=== PATIENT | male | born 1940 | race Caucasian/White ===

== ENCOUNTER 2018-04-16 19:00 | Emergency (ER) | payer MEDICARE, OTHER ==
[~2018-04-16] VITALS: Ht 172.7 cm; Wt 70.3 kg
[~2018-04-16 19:00] MED LIST: ALEVE220 M1 PO; ASPIR 8181 MG PO; ATENOLOL50 MG PO; FLOMAX0.4 MG PO; FLUOXETINE HCL20 M1 PO; FLUOXETINE HCL20 MG PO; GLUCOSAMINE1000 MG PO; HYDROCHLOROTHIA25 MG PO; LISINOPRIL10 MG PO; MULTI-VITAMIN1 EACH PO; PLAVIX75 MG PO; PROAIR HFA INH8.5 GM INH; SIMVASTATIN80 MG PO; SYMBICORT 16010.2 GM INH
--- OUTSIDE RECORDS SUMMARY | 2018-04-16 19:03 | XMS REPORT | Summary of Care ---
Author Author [facility] [place] Organization [facility] [place] Address Unknown Phone Unavailable Encounter [facility]) [id number] Date(s): 07/19/15 - 07/19/15 [facility] [place] [address] [place] [address] [phone] Discharge Disposition: Home Attending Physician: Gerald Bailey MD Vital Signs No data available for this section Problem List No data available for this section Allergies, Adverse Reactions, Alerts No data available for this section Medications No data available for this section Results No data available for this section Immunizations No data available for this section Procedures No data available for this section Social History No data available for this section Assessment and Plan No data available for this section
--- OUTSIDE RECORDS SUMMARY | 2018-04-16 19:03 | XMS REPORT | Continuity of Care Document ---
Author Author Charlotte walker [facility] Interface Address Unknown Phone Unavailable Problems Problem Status Onset Date Classification Date Reported Comments Source R06.02 Active 01/05/2016 [facility] S46.092A - INJ MUSC/TEND THE ROTATOR CUF Active 07/14/2015 [facility] [place] SHORTNESS OF BREATH Active [facility] Medications Medication Details Route Status Patient Instructions Ordering Provider Order Date Source Allergies, Adverse Reactions, Alerts Substance Category Reaction Severity Reaction type Status Date Reported Comments Source Immunizations Immunization Date Given Site Status Last Updated Comments Source Results Order Name Results Value Reference Range Date Interpretation Comments Source Shoulder wo contrast MRI Shoulder wo contrast MRI EXAMINATION: MR left shoulder without contrast HISTORY: S46.092A Other injury of muscle(s) and tendon(s) of the rotator cuff of left shoulder, initial encounter; chronic left shoulder pain and limited range of motion; left glenohumeral arthritis FINDINGS: Orbital screening radiographs prior to the examination demonstrate no evidence of radiopaque foreign body. Dental restorations are partially visualized. There are no shoulder radiographs available for review. Multiplanar, multisequence magnetic resonance imaging of the left shoulder is performed with a local coil. Transverse, oblique coronal, and oblique sagittal images are obtained. Biceps: The long head of biceps remains attached at the superior bicipital labral complex without dislocation or subluxation. Labrum: There is circumferential degenerative tearing of the labrum. Rotator cuff tendons: There is moderate supraspinatus and infraspinatus tendinopathy with increased intratendinous signal and tendon hypertrophy. There is a small, low grade, partial-thickness interstitial tear at the footprint of the anterior supraspinatus tendon measuring 4 mm in anteroposterior dimension and involving a maximum of approximately one third of the tendon thickness at the footprint. There is no high-grade partial-thickness or full-thickness tear. The teres minor and subscapularis tendons are intact. Acromio-osseous outlet: There is a type I acromion without a subacromial spur. The coracoacromial and coracoclavicular ligaments are intact. Muscles: There is mild diffuse fatty infiltration of the rotator cuff musculature without decreased muscle bulk. Cartilage: There is mild degenerative arthrosis of the acromioclavicular joint. There is severe glenohumeral osteoarthritis with full-thickness cartilage denudation of the humeral head and matching glenoid. There are several foci of subchondral cyst formation with osteophytosis of the glenohumeral joint. Bone: There are 17 degrees of acquired glenoid retroversion (series 2C, image 8). There is decreased glenoid bone stock centrally measuring 1.4 cm (series 2C, image 9). There are no fractures. Soft tissue: There is no fluid in the subacromial-subdeltoid bursa. There is a large glenohumeral joint effusion with scattered synovitis and synovitic debris. There is a large osteochondral loose body within the subcoracoid recess measuring approximately 3.5 x 2 x 2.2 cm in mediolateral, anteroposterior, and craniocaudal dimensions respectively. IMPRESSION: 1. Severe left glenohumeral osteoarthritis with full-thickness cartilage denudation of the humeral head and matching glenoid, as well as, foci of subchondral cyst formation and osteophytosis at the glenohumeral joint. There is acquired glenoid retroversion of 17 degrees with decrease glenoid bone stalk centrally. 2. Moderate left supraspinatus and infraspinatus tendinopathy with a small, low grade, partial-thickness interstitial tear at the footprint of the anterior left supraspinatus tendon measuring 4 mm in anteroposterior dimension and involving a maximum of approximately one third of the tendon thickness at the footprint. There is no high-grade partial-thickness tear or full-thickness tear. 3. Mild diffuse fatty infiltration of the left rotator cuff musculature without decrease muscle bulk. 4. Mild left acromioclavicular degenerative arthrosis. 5. Large left glenohumeral joint effusion with scattered synovitis and synovitic debris. A large osteochondral loose body is noted within the subcoracoid recess. 07/19/2015 - - Read by: Chan Nino MD Dictated Date/time: 07/19/15 13:11 Electronically Signed by: Chan Nino MD 07/19/15 13:32 FINAL REPORT [facility] Vital Signs Vital Sign Value Date Comments Source Encounters Location Location Details Encounter Type Encounter Number Reason For Visit Attending Provider ADM Date DC Date Status Source [facility] [place] Out[facility] Services [id number] Gearld Bailey 07/19/2015 07/20/2015 [facility] Outpatient [id number] Primo Hunter 01/11/2016 01/12/2016 [facility] [place] Out[facility] Di[facility] Services [id number] Shayne Huff 06/11/2016 06/12/2016 [facility] [place] Procedures Procedure Code Date Perfomer Comments Source
--- OUTSIDE RECORDS SUMMARY | 2018-04-16 19:03 | XMS REPORT | Clinical Summary ---
Author Author [facility] Address Unknown Phone Unavailable Care Team Providers Care Test Data Developer Name Role Phone Primo Hunter MD PCP Allergies Comments Active Allergy Reactions Severity Noted Date Hydrocodone-Acetaminophen Rash High 01/11/2016 Medications End Date Status Medication Sig Dispensed Refills Start Date Active FLUoxetine (PROzac) 20 MG Take 20 mg by 0 capsule mouth daily. Active testosterone cypionate Inject into 0 (DEPOTESTOTERONE the shoulder, CYPIONATE) 200 mg/mL thigh, or injection buttocks every 30 (thirty) days. Active tamsulosin (FLOMAX) 0.4 Take 0.4 mg 0 mg capsule,extended by mouth release 24hr daily. Active amLODIPine (NORVASC) 10 Take 10 mg by 0 mg tablet mouth daily. Active aspirin (ECOTRIN) 81 MG Take 81 mg by 0 enteric coated tablet mouth daily. Active fluticasone-vilanterol Inhale 1 0 (BREO ELLIPTA) 200-25 inhalations mcg/dose blister with once daily. device powder for inhalation Active clopidogrel (PLAVIX) 75 Take 75 mg by 0 mg tablet mouth daily. Active albuterol (PROAIR Inhale 2 0 HFA,PROVENTIL puffs every 6 HFA,VENTOLIN HFA) 90 (six) hours mcg/actuation inhaler as needed for wheezing. Active simvastatin (ZOCOR) 40 MG Take 40 mg by 0 tablet mouth nightly. Active Problems Problem Noted Date s/p Stent placement of L common carotid, L subclavian, L vertebral arteries 01/10/2017 Accelerated hypertension 01/10/2017 Postoperative anemia due to acute blood loss 01/10/2017 Coagulopathy 01/10/2017 PAD (peripheral artery disease) 01/09/2017 Immunizations Name Dates Previously Given Next Due FLUCELVAX QUAD PF (0.5mL 01/15/2017 syringe) INFLUENZA QUAD PF 02/19/2016 Family History Medical History Relation Name Comments Diabetes Mother Heart disease Mother Relation Name Status Comments Mother Social History Date Tobacco Use Types Packs/Day Years Used Former Smoker Tobacco Cessation: Counseling Given: No Alcohol Use Drinks/Week oz/Week Comments No Sex Assigned at Date Recorded Not on file Industry Job Start Date Occupation Not on file Not on file Not on file Travel End Travel History Travel Start No recent travel history available. Last Filed Vital Signs Not on file Plan of Treatment Health Maintenance Due Date Last Done Comments COLON CANCER SCREENING 1992 SHINGLES VACCINES (1 of 1992 2) PNEUMOCOCCAL 2007 POLYSACCHARIDE VACCINE AGE 65 AND OVER PNEUMOCOCCAL-13 2007 INFLUENZA VACCINE 11/12/2017 01/15/2017, 02/19/2016 Implants Device Identifier Shelf Expiration Date Model / Serial / Lot Implanted Type Area Manufactur er 11/22/2016 [id number] / / [id number] Kit Romeo 3 26mm Commander Tavr Cardiovasc N/A: N/A ROBERT (Tf) - [id number] [facility] Implanted: Qty: 1 on 02/15/2016 by Implants Roderick Robertson MD 08/11/2018 [id number] / / [id number] Device Vasclr Clsr Baln Cath 10ml Cardiovasc N/A: N/A CARDINAL Lkng Syr 6fr 7fr Mynxgrip - [facility] [id number] Implants Implanted: 11/15/2016 (Quantity not on file) 08/06/2018 [id number] / / [id number] Catheter Bln Otw 2.5mm 12mm Cardiovasc N/A: N/A MEDTRON[employer] Sprinter - [id number] [facility] [place] - Implanted: 01/10/2017 (Quantity not Implants VASCULAR on file) 06/24/2018 [id number] / / [id number] Stent System 4.0 X 12mm Resolute Coronary N/A: N/A [employer]TRON[employer] Yoder Otw Coronary - [id number] Stents [place] - Implanted: 01/10/2017 (Quantity not CARDIAC on file) RYHTYM MGMT 11/13/2018 [id number] / / [id number] Stent Bili Iliac Exp Ld Reprcsd Peripheral N/A: N/A BSC Prmntd 8x17mm Metal - [id number] or Biliary PERIPHERAL Implanted: 01/10/2017 (Quantity not Stents INTERVENTI on file) ON VASCULAR FERNANDEZ 07/17/2019 [id number] / / [id number] Stent Bili Express Ld Prmntd 135cm Peripheral N/A: N/A [facility] [place] 7x57mm - [id number] or Biliary PERIPHERAL Implanted: 01/10/2017 (Quantity not Stents INTERVENTI on file) ON VASCULAR FERNANDEZ 07/25/2018 [id number] / / [id number] Stent Bili Exp Ld Prmntd 7x17mm W/ Peripheral N/A: N/A [facility] [place] Cath 135cm - [id number] or Biliary PERIPHERAL Implanted: 01/10/2017 (Quantity not Stents INTERVENTI on file) ON VASCULAR FERNANDEZ 06/12/2019 [id number] / / [id number] Stent Crtd Xact Slf-Xpndbl Str Asaf Peripheral N/A: N/A CISSE 8x30mm - [id number] or Biliary VASCULAR Implanted: 01/10/2017 (Quantity not Stents DEVICES on file) 04/01/2017 [id number] / [id number] / [id number] 7mm Nominal X 11mm Post-Dilated Stent, N/A: N/A GORE Stent, 15mm Crimped Stent, 135cm Balloon MEDICAL Catheter, Viabahn Vbx Expanding Balloon-Expandable Endoprosthesis Implanted: Qty: 1 on 11/15/2016 by Suleiman Arnold MD 08/13/2017 [id number] / [id number] / [id number] 7mm Nominal X 11mm Post-Dilated Stent, N/A: N/A GORE Stent, 19mm Crimped Stent, 135cm Balloon MEDICAL Catheter, Viabahn Vbx Expanding Balloon-Expandable Endoprosthesis Implanted: Qty: 1 on 11/15/2016 by Suleiman Arnold MD 08/06/2019 [id number] / / [id number] Cath Spinning Machine Operator 6fr Ball 80cm X 2.0 10mm Surgical N/A: N/A COOK Advance 35lp - [id number] Implants; PERIPHERAL Implanted: 11/15/2016 (Quantity not Expanders; INTERVENTI on file) Extenders; ON Surgical Wires [id number] / / Catheter Balloon Advance 35 Lp Low Surgical N/A: N/A COOK Profile 135-6-2.0 - [id number] Implants; PERIPHERAL Implanted: 01/10/2017 (Quantity not Expanders; INTERVENTI on file) Extenders; ON Surgical Wires [id number] / / Catheter Balloon Advance 35 Lp Low Surgical N/A: N/A COOK Profile 135-6-4.0 - [id number] Implants; PERIPHERAL Implanted: 01/10/2017 (Quantity not Expanders; INTERVENTI on file) Extenders; ON Surgical Wires 10/25/2019 [id number] / / [id number] [place] Select 5f [address] [place] - Surgical N/A: N/A PENUMBRA [id number] Implants; INC Implanted: 01/10/2017 (Quantity not Expanders; on file) Extenders; Surgical Wires Results Not on fileafter 04/15/2017 Insurance Payer Benefit Subscriber ID Type Phone Address Plan / Group [employer] CIGNA xxxxxxxxxxx [facility] Advance Directives Patient has advance care planning documents on file. For more information, elma robison contact: Dusty Dempsey [address] [place] [address]
--- OUTSIDE RECORDS SUMMARY | 2018-04-16 19:03 | XMS REPORT | Summary of Care ---
Author Author [facility] [place] Organization [facility] [place] Address Unknown Phone Unavailable Encounter [facility]([place]) [id number] Date(s): 06/11/16 - 06/11/16 [facility] [place] [address] [place] [phone] Discharge Disposition: Home or Self Care Attending Physician: Shayne Huff MD Vital Signs No data available for [...]
--- OUTSIDE RECORDS SUMMARY | 2018-04-16 19:03 | XMS REPORT | Summary of Care ---
Author Author [facility] Organization [facility] Address Unknown Phone Unavailable Encounter [facility]tr_[facility]([place]) [id number] Date(s): 01/11/16 - 01/11/16 [facility] [address] [place] [id number] [phone] Discharge Disposition: Home or Self Care Attending Physician: Primo Hunter MD Referring Physician: Primo Hunter MD Vital Signs No data available for [...]
--- OUTSIDE RECORDS SUMMARY | 2018-04-16 19:03 | XMS REPORT | Summary of Care ---
Author Author [facility] [place] Organization [facility] [place] Address Unknown Phone Unavailable Encounter [facility]([place]) [id number] Date(s): 06/11/16 - 06/11/16 [facility] [place] [address] [place] [phone] Discharge Disposition: Home or Self Care Attending [...]
[2018-04-16 19:24] LABS: BASOPHILS # (AUTO) 0.1 (0.0-0.1); BASOPHILS % 0.5 % (0.0-1.0); EOSINOPHILS # (AUTO) 0.5 (0.0-0.4); EOSINOPHILS % 3.7 % (0.0-6.0); HEMATOCRIT 41.4 % (38.2-49.6); HEMOGLOBIN 13.1 g/dL (14.0-18.0); LYMPHOCYTES # (AUTO) 1.7 (1.0-3.2); LYMPHOCYTES % 13.8 % (18.0-39.1); MEAN CORPUSCULAR HEMOGLOBIN 28.7 pg (28-32); MEAN CORPUSCULAR HGB CONC 31.6 g/dL (31-35); MEAN CORPUSCULAR VOLUME 90.8 fL (81-99); MONOCYTES % 8.1 % (4.4-11.3); NEUTROPHILS # (AUTO) 8.9 (2.1-6.9); NEUTROPHILS % 73.4 % (38.7-80.0); PLATELET COUNT 252 x10e3/uL (140-360); RED BLOOD COUNT 4.56 x10e6/uL (4.3-5.7); RED CELL DISTRIBUTION WIDTH 16.2 % (11.7-14.4)
[2018-04-16] MEDS ORDERED: DIATRIZOATE MEGL/DIATRIZOA SOD 30 ML BTL PO ONE (19:40)
[2018-04-16 19:42] LABS: ALBUMIN 3.6 g/dL (3.5-5.0); ALBUMIN/GLOBULIN RATIO 1.2 (0.8-2.0); ANION GAP 14.4 mmol/L (8-16); CALCIUM 8.6 mg/dL (8.4-10.2); CREATININE, SERUM 2.26 mg/dL (0.72-1.25); POTASSIUM 3.4 mmol/L (3.5-5.1)
[2018-04-16 19:57] LABS: BILIRUBIN,URINE NEGATIVE (NEGATIVE); CLARITY,URINE CLEAR (CLEAR); COLOR,URINE YELLOW (YELLOW); KETONES,URINE NEGATIVE (NEGATIVE); LEUKOCYTE ESTERASE ,URINE NEGATIVE (NEGATIVE); NITRITE,URINE NEGATIVE (NEGATIVE); PROTEIN,URINE DIPSTICK NEGATIVE (NEGATIVE); URINE UROBILINOGEN 1 mg/dL (0.2 - 1)
[2018-04-16 20:06] LABS: EPITHELIAL CELLS,URINE RARE /LPF
--- NOTE | 2018-04-16 20:23 | Diagnostic Imaging Report ---
EXAMINATION: CHEST SINGLE (PORTABLE) INDICATION: ^COUGH X1 WEEK ^[id number] ^1946 COMPARISON: 11/12/2016 FINDINGS: AP view TUBES and LINES: None. LUNGS: Lungs are well inflated. Central peribronchovascular thickening/cuffing. Mild bilateral lower lung field hazy opacities. PLEURA: No pleural effusion or pneumothorax. HEART AND MEDIASTINUM: The cardiomediastinal silhouette is unremarkable. Aorta is mildly calcified and tortuous. BONES AND SOFT TISSUES: No acute osseous lesion. Degenerative changes of glenohumeral joints, left greater than right. Soft tissues are unremarkable. UPPER ABDOMEN: No free air under the diaphragm. IMPRESSION: Central peribronchovascular thickening/cuffing. Mild bilateral lower lung field hazy opacities, representing atelectasis and/or developing pneumonia. Signed by: Dr. Uziel Barker MD on 04/16/2018 8:20 PM
--- NOTE | 2018-04-16 21:23 | Diagnostic Imaging Report ---
EXAM: CT Abdomen and Pelvis WITHOUT contrast INDICATION: Lower abdominal pain/groin pain. COMPARISON: CT abdomen and pelvis 11/12/2016 TECHNIQUE: Abdomen and pelvis were scanned utilizing a multidetector helical scanner from the lung base to the pubic symphysis without administration of IV contrast. Absence of intravenous contrast decreases sensitivity for detection of focal lesions and vascular pathology. Coronal and sagittal reformations were obtained. Routine protocol was performed. IV CONTRAST: None ORAL CONTRAST: Gastrografin COMPLICATIONS: None RADIATION DOSE: Total DLP: 413.6 mGy*cm Estimated effective dose: (DLP x 0.015 x size factor) mSv Dose modulation, iterative reconstruction, and/or weight based adjustment of the mA/kV was utilized to reduce the radiation dose to as low as reasonably achievable. FINDINGS: LINES and TUBES: None. LOWER THORAX: Partially visualized ascending aortic graft. Three-vessel coronary artery calcifications. HEPATOBILIARY: Stable 1.5 cm cyst in the inferior right hepatic lobe. No biliary ductal dilation. GALLBLADDER: No radio-opaque stones or sludge. No wall thickening. SPLEEN: No splenomegaly. PANCREAS: No focal masses or ductal dilatation. ADRENALS: No adrenal nodules 1 KIDNEYS/URETERS: No hydronephrosis. Multiple renal cysts, largest measuring 4 cm in the superior left renal pole. No stones. GI TRACT: No abnormal distention, wall thickening, or evidence of bowel obstruction. Appendix is not clearly identified. There is however no fat stranding or adenopathy in the right lower quadrant to suggest appendicitis. PELVIC ORGANS/BLADDER: Unremarkable. LYMPH NODES: No lymphadenopathy. VESSELS: Limited evaluation without intravenous contrast. Aortobifemoral bypass graft. Celiac artery stent. Advanced atherosclerotic disease. 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 Please refer to CTA 11/12/2016 for vascular findings. PERITONEUM / RETROPERITONEUM: No free air or fluid. BONES: There are degenerative changes in the lumbar spine. SOFT TISSUES: Bilateral fat-containing inguinal hernias. Small left femoral fat-containing hernia and tiny fat-containing umbilical hernia. IMPRESSION: 1. No acute abnormalities in the abdomen or pelvis. 2. Advanced atherosclerotic changes with aortobifemoral bypass. Limited evaluation without IV contrast. Signed by: DR. Parish Henderson MD on 04/16/2018 9:20 PM
== END 2018-04-16 21:45 | disposition home or self-care (01) ==
LOC: ER 19:00
DX: R10.31 Right lower quadrant pain (principal); K40.90 Unilateral inguinal hernia, without obstruction or gangrene, not specified as recurrent; J20.9 Acute bronchitis, unspecified; N18.9 Chronic kidney disease, unspecified; E78.00 Pure hypercholesterolemia, unspecified; Z95.1 Presence of aortocoronary bypass graft; F17.210 Nicotine dependence, cigarettes, uncomplicated
CPT/HCPCS: 36415; 71045; 74176; 80053; 81001; 85025; 99284

== ENCOUNTER 2020-02-13 08:05 | Emergency (ER) | payer MEDICARE, OTHER ==
[~2020-02-13] VITALS: Ht 172.7 cm; Wt 70.3 kg
== END 2020-02-13 08:30 | disposition home or self-care (01) ==
LOC: ER 08:24
DX: T16.2XXA Foreign body in left ear, initial encounter (principal); I10 Essential (primary) hypertension; E78.5 Hyperlipidemia, unspecified; N18.9 Chronic kidney disease, unspecified; E78.00 Pure hypercholesterolemia, unspecified; Z95.1 Presence of aortocoronary bypass graft; F17.210 Nicotine dependence, cigarettes, uncomplicated
CPT/HCPCS: 99283

== ENCOUNTER → 2020-07-05 | Outpatient (CLI) | payer MEDICARE | LOC: MRI 07:32 | PROVIDERS: ATTEND Psychiatry & Neurology Neurology | DX: I65.22 Occlusion and stenosis of left carotid artery (principal); R26.9 Unspecified abnormalities of gait and mobility | CPT/HCPCS: 70547; 70551 ==

== ENCOUNTER 2020-11-04 09:17 | Emergency (ER) | payer MEDICARE, OTHER ==
[~2020-11-04] VITALS: Ht 167.6 cm; Wt 68.0 kg
[2020-11-04] MEDS ORDERED: TETANUS/DIPHTHERIA TOX ADULT 0.5 ML SYR IM ONE (09:45)
[2020-11-04] MEDS ORDERED: TETANUS/DIPHTHERIA TOX ADULT 0.5 ML SYR ONE (10:34)
== END 2020-11-04 10:46 | disposition home or self-care (01) ==
LOC: FSED 09:19
DX: S51.011A Laceration without foreign body of right elbow, initial encounter (principal); Z23 Encounter for immunization; V43.62XA Car passenger injured in collision with other type car in traffic accident, initial encounter; Y92.410 Unspecified street and highway as the place of occurrence of the external cause
CPT/HCPCS: 90471; 90714; 99283